=== PATIENT | male | born 1985 | race Caucasian/White ===

== ENCOUNTER 2018-10-10 11:08 | Emergency (ER) | payer OTHER ==
[2018-10-10] MEDS ORDERED: NS 1,000 ML IV ONE ×2 (11:35→12:49)
[2018-10-10] MEDS ORDERED: LORazepam 2 MG/ML INJ IVP ONE (11:35)
--- NOTE | 2018-10-10 11:35 | EDPHY ---
H & P Stated Complaint: witnessed sz at work lasting approx 1 min Time Seen by Provider: 10/10/18 11:30 HPI/ROS: HPI: This is a 33-year-old male who presents with Chief Complaint: Witnessed seizure while at work lasting approximately 1 min Location: Body Quality: Generalized convulsions lasting 1 min Duration: 1 hr prior to arrival Signs and Symptoms: no shortness of breath at rest, no shortness of breath on exertion, no cough, no chest pain, no palpitations, no lower extremity edema, no wheezing, no orthopnea, no paroxysmal nocturnal dyspnea, no fever, no injury/ trauma, no hemoptysis, no carpal pedal spasms, no urinary or bowel incontinence , + tongue biting Timing: Acute on chronic Severity: Moderate Context: Patient presents via EMS from work with witnessed seizure activity described as generalized convulsions of his body lasting approximately 1 min. Patient reports that he was sitting at his desk when he started to get a funny taste in his mouth and racing thoughts. The next thing he remembers is EMS standing over him. He complains of fatigue and nausea. He reports that yesterday he believes that he had a seizure that he describes as a funny taste in his mouth, racing thoughts and staring blankly into space. He was seen by [facility] last year around September and started on Keppra 500 mg twice daily. He had an EEG performed and was essentially unremarkable. He was then taken off of the Keppra. Patient reports that he normally has a seizure since he was an infant once a year. He does not remember provider name at [facility]. Patient reports that he feels like he bit his tongue but denies any dental trauma or jaw pain. He does not have a headache. He drank some orange juice and ate a bagel today. Denies any fever, back pain, vision changes, neck stiffness, chest pain, shortness of breath. EMS reported that his co-worker saw him convulsing on the ground. Unsure if he hit his head. Denies any neck pain. Modifying Factors: None Comment: ROS: A comprehensive 10 system review of systems is otherwise negative aside from elements mentioned in the history of present illness. MEDICAL/SURGICAL/SOCIAL HISTORY: Medical history: Generally healthy. Does not take any regular medications. Surgical history: Denies Social history: Employed. Nonsmoker. Drinks alcohol socially. Denies drug use. CONSTITUTIONAL: Postictal, talkative, adult white male, awake and alert, no obvious distress HEENT: Atraumatic and normocephalic, PERRL, EOMI. Nares patent; no rhinorrhea; no nasal mucosal edema. Tympanic membranes clear. Oropharynx clear, tongue shows mild contusion but no active bleeding or laceration, no exudate and moist pink mucosa. Dental trauma. Airway patent. No lymphadenopathy. NECK: supple , no midline tenderness, flexion 45 degrees, extension 45 degrees, right and left lateral flexion 45 degrees. No meningismus. No carotid bruits. Cardiovascular: Normal S1/S2, regular rate, regular rhythm, without murmur rub or gallop. PULMONARY/CHEST: Symmetrical and nontender. Clear to auscultation bilaterally. Good air movement. No accessory muscle usage. ABDOMEN: Soft, nondistended, nontender, no rebound, no guarding, no peritoneal signs, no masses or organomegaly. No CVAT. EXTREMITIES: 2/2 pulses, strength 5/5, no deformities, no clubbing, no cyanosis or edema. NEUROLOGICAL: no focal neuro deficits. GCS 15. No seizure activity appreciated. Cranial nerves 2-12 grossly intact. Speech clear. SKIN: Warm and dry, no erythema. no rash. Good capillary refill. Source: Patient Exam Limitations: No limitations - Medical/Surgical History Hx Asthma: No Hx Chronic Respiratory Disease: No Hx Diabetes: No Hx Cardiac Disease: No Hx Renal Disease: No Hx Cirrhosis: No Hx Alcoholism: No Hx HIV/AIDS: No Hx Splenectomy or Spleen Trauma: No Other PMH: sz - Social History Smoking Status: Never smoked Constitutional: Initial Vital Signs Temperature (C) 36.7 C 10/10/18 11:12 Heart Rate 104 H 10/10/18 11:12 Respiratory Rate 18 10/10/18 11:12 Blood Pressure 135/87 H 10/10/18 11:12 O2 Sat (%) 91 L 10/10/18 11:12 O2 Delivery Mode Room Air Allergies/Adverse Reactions: doxycycline Allergy (Verified 10/10/18 11:15) Home Medications: Medication Instructions Recorded levETIRACETAM [Keppra Xr] 500 mg PO BID #60 tab.sr.24h 10/10/18 Medical Decision Making - Diagnostics EKG Interpretation: 12 lead EKG: Indication: Seizure Rhythm: Normal sinus rhythm Surfside: Normal Intervals: Normal QRS: Normal ST segments: Normal INTERPRETATION: No acute ischemic changes The 12 lead EKG was interpreted by myself and with attending. Imaging Results: Imaging Impressions Head CT 10/10/18 11:35 Impression: 1. No acute intracranial process. 2. Lucency through the anterior C2 base may represent a nondisplaced fracture or nutrient foramen. This is incompletely seen as it is on the first image of the study. Recommend CT cervical spine. Findings and recommendations discussed with Rasheeda Eller at 1208 hour, 2018. Cervical Spine CT 10/10/18 12:08 Impression: 1. No acute posttraumatic abnormality identified. If there is persistent pain or neurologic deficit, consider MRI and/or flexion and extension views if clinically indicated. 2. Mild degenerative change with grade 1 anterolistheses of C3 on C4 and C4 on C5. 3. Mild skin thickening in the anterior left neck, likely inflammatory. Findings discussed with Rasheeda Eller 10/10/2018 at 13:00. ED Course/Re-evaluation: Vital signs reviewed and show O2 sats 91% on room air and tachycardia. Placed on ekg monitor tech. IV access, laboratory studies including point of care troponin, EKG, head CT ordered Given 2 L normal saline, IV Ativan 1 mg and IV Zofran 4 mg 1150: EKG my read shows normal sinus rhythm with rate of 91 beats per minute but no acute ischemic changes, no arrhythmias, no heart block. 1208: Called by radiology, Dr. Frank, recommends Head CT shows no acute intracranial process but does show lucency at C2. Cervical CT scan without contrast ordered per Radiology recommendation. 1249: Laboratory studies reviewed. WBC 13 K, platelet count 444K, potassium 4.2, creatinine 1.4, BUN 14, CO2 14, anion gap 24, troponin 0.012 1300: Called by Dr. Dhaliwal, cervical CT scan shows no acute process, no fracture. Mild degenerative change with grade 1 anterolistheses of C3 on C4 and C4 on C5. Mild skin thickening in the anterior left neck, likely inflammatory. 1348: Spoke with neurologist, Dr. Pinzon, who reports that he saw the patient 2015. Reviewed chart and laboratory findings as well as negative head CT scan. He recommends restarting Keppra extended release 500 mg twice daily. He will see the patient in his office in the next 1-2 weeks for follow-up. 1450: Given 1st dose of Keppra 500 mg in the emergency room and prescription for same. 1530: Repeat BMP level greatly improved and anion gap resolved. This patient was seen under the supervision of my primary supervising physician. I evaluated and cared for this patient independently. Differential Diagnosis: Seizure including but not limited to electrolyte abnormality, alcohol withdrawal , medication noncompliance, head injury, and breakthrough seizure. - Data Points Laboratory Results: Laboratory Results 10/10/18 11:44 10/10/18 14:55 10/10/18 10/10/18 10/10/18 14:55 11:44 11:44 WBC 13.10 10^3/uL H 10^3/uL (3.80-9.50) RBC 5.84 10^6/uL 10^6/uL (4.40-6.38) Hgb 18.1 g/dL H g/dL (13.7-17.5) Hct 51.7 % H % (40.0-51.0) MCV 88.5 fL fL (81.5-99.8) MCH 31.0 pg pg (27.9-34.1) MCHC 35.0 g/dL g/dL (32.4-36.7) RDW 12.2 % % (11.5-15.2) Plt Count 444 10^3/uL H 10^3/uL (150-400) MPV 10.0 fL fL (8.7-11.7) Neut % (Auto) 60.4 % % (39.3-74.2) Lymph % (Auto) 27.9 % % (15.0-45.0) Day % (Auto) 7.9 % % (4.5-13.0) Eos % (Auto) 1.9 % % (0.6-7.6) Baso % (Auto) 1.1 % % (0.3-1.7) Nucleat RBC Rel Count 0.0 % % (0.0-0.2) Absolute Neuts (auto) 7.90 10^3/uL H 10^3/uL (1.70-6.50) Absolute Lymphs (auto) 3.66 10^3/uL H 10^3/uL (1.00-3.00) Absolute Monos (auto) 1.04 10^3/uL H 10^3/uL (0.30-0.80) Absolute Eos (auto) 0.25 10^3/uL 10^3/uL (0.03-0.40) Absolute Basos (auto) 0.15 10^3/uL H 10^3/uL (0.02-0.10) Absolute Nucleated RBC 0.00 10^3/uL 10^3/uL (0-0.01) Immature Gran % 0.8 % % (0.0-1.1) Immature Gran # 0.10 10^3/uL 10^3/uL (0.00-0.10) Sodium 136 mEq/L mEq/L 138 mEq/L mEq/L (135-145) (135-145) Potassium 3.2 mEq/L L mEq/L 4.2 mEq/L mEq/L (3.5-5.2) (3.5-5.2) Chloride 104 mEq/L mEq/L 100 mEq/L mEq/L (97-110) (97-110) Carbon Dioxide 24 mEq/l mEq/l 14 mEq/l L mEq/l (22-31) (22-31) Anion Gap 8 mEq/L mEq/L 24 mEq/L H mEq/L (6-14) (6-14) BUN 14 mg/dL mg/dL 14 mg/dL mg/dL (7-23) (7-23) Creatinine 1.1 mg/dL mg/dL 1.4 mg/dL H mg/dL (0.7-1.3) (0.7-1.3) Estimated GFR > 60 58 Glucose 121 mg/dL H mg/dL 97 mg/dL mg/dL (70-100) (70-100) Calcium 8.9 mg/dL mg/dL 10.3 mg/dL mg/dL (8.5-10.4) (8.5-10.4) Magnesium 2.8 mg/dL H mg/dL (1.6-2.3) Troponin I < 0.012 ng/mL ng/mL (0.000-0.034) Medications Given: Discontinued Medications Sodium Chloride (Ns) 1,000 mls @ 0 mls/hr IV ONCE ONE; Wide Open PRN Reason: Protocol Stop: 10/10/18 11:36 Last Admin: 10/10/18 11:56 Dose: 1,000 mls Sodium Chloride (Ns) 1,000 mls @ 0 mls/hr IV EDNOW ONE; Wide Open PRN Reason: Protocol Stop: 10/10/18 12:50 Last Admin: 10/10/18 13:55 Dose: 1,000 mls Levetiracetam (Keppra) 500 mg PO EDNOW ONE Stop: 10/10/18 13:49 Last Admin: 10/10/18 13:55 Dose: 500 mg Lorazepam (Ativan Injection) 1 mg IVP EDNOW ONE Stop: 10/10/18 11:36 Last Admin: 10/10/18 11:56 Dose: 1 mg Ondansetron HCl (Zofran) 4 mg IVP EDNOW ONE Stop: 10/10/18 11:43 Last Admin: 10/10/18 11:57 Dose: 4 mg Departure - Departure Disposition: Home, Routine, Self-Care Clinical Impression: Seizure disorder Condition: Good Instructions: Epilepsy (ED) Additional Instructions: Start taking Keppra extended release 500 mg twice a day. Call [facility] for follow-up appointment in the next 1-2 weeks. Referrals: [facility] [Outside] - As per Instructions Patient,NotPresent [Primary Care Provider] - As per Instructions MIHAI PINZON [Non Staff Provider ()] - As per Instructions Prescriptions: levETIRACETAM [Keppra Xr] 500 mg PO BID #60 tab.sr.24h
[2018-10-10] MEDS ORDERED: ONDANSETRON 4 MG/2 ML VIAL IVP ONE (11:42)
[2018-10-10 11:48] LABS: PLATELET COUNT 444 10^3/uL (150-400)
[2018-10-10] MEDS ORDERED: levETIRAcetam 500 MG TAB PO ONE (13:48)
--- NOTE | 2018-10-10 15:28 | CPEKG ---
Test Reason : OPEN Blood Pressure : / mmHG Vent. Rate : 091 BPM Atrial Rate : 089 BPM P-R Int : 132 ms QRS Dur : 081 ms QT Int : 374 ms P-R-T Axes : 054 026 030 degrees QTc Int : 461 ms Sinus rhythm Confirmed by Lyly Pelayo ([id number]) on 10/10/2018 3:27:42 PM Referred By: LYLY PELAYO Confirmed By:Lyly Pelayo
[2018-10-10 15:47] VITALS: BP 125/93
== END 2018-10-10 15:45 | disposition home or self-care (01) ==
DX: G40.909 Epilepsy, unspecified, not intractable, without status epilepticus (principal); E86.9 Volume depletion, unspecified
CPT/HCPCS: 96374; J2060; J2405